=== PATIENT | female | born 1940 | race Caucasian/White ===

== ENCOUNTER 2021-04-23 15:20 | Emergency (ER) | payer MEDICARE, SELFPAY ==
--- NOTE | ~2021-04-23 | XR_ITS ---
EXAMINATION: XR forearm LT 2V INDICATION: Left wrist and forearm pain, initial encounter TECHNIQUE: Two views of the left forearm are obtained. COMPARISON: None available FINDINGS: There is an acute, traumatic, closed, transverse, impacted fracture of the distal radius. B one alignment at the wrist and elbow appears normal. No additional acute osseous abnormality is ident ified. Soft tissue swelling surrounds the fracture. 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 IMPRESSION: 1. Acute impacted fracture of the distal radius. Reviewed, dictated and finalized at location F. SAFETY COORDINATOR
--- NOTE | 2021-04-23 15:29 | ED.UPPEXIN ---
HPI - Extremity Injury (Upper) General Chief Complaint: Extremity Injury, Upper Stated Complaint: lt arm inj Time Seen by Provider: 04/23/21 15:30 Source: patient and RN notes reviewed History of Present Illness HPI narrative: Patient is a 89-year-old female who presents the urgent care with her friend with complaints of a left arm injury. Patient states that she was playing pickle ball at [employer] this afternoon and fell backwards onto her left arm. Patient denies hitting her head or any loss of consciousness. Patient is not done anything [id number] for her pain. No other acute complaints or injuries. No acute distress noted. Patient aware of the plan of care. Some parts of this dictation were generated by voice recognition software and may contain typographical and/or grammatical inaccuracies. Related Data Home Medications Medication Instructions Recorded Confirmed amlodipine 5 mg PO DAILY 04/23/21 04/23/21 benazepril 40 mg PO DAILY 04/23/21 04/23/21 levothyroxine 75 mcg PO DAILY 04/23/21 04/23/21 simvastatin 20 mg PO DAILY 04/23/21 04/23/21 Allergies Allergy/AdvReac Type Severity Reaction Status Date / Time No Known Allergies Allergy Verified 04/23/21 15:45 Review of Systems Review of Systems: CONSTITUTIONAL: Denies fever, chills, or sweats. EYES: Denies visual changes, redness, or discharge. ENT: Denies rhinorrhea, congestion, sore throat, or otalgia. CARDIOVASCULAR: Denies chest pain, palpitations, or edema. RESPIRATORY: Denies cough or dyspnea. GASTROINTESTINAL: Denies abdominal pain, nausea, vomiting, or diarrhea. GENITOURINARY: Denies dysuria or hematuria. SKIN: Denies rash or itching. MUSCULOSKELETAL: Reports of left arm injury due to fall with pain NEUROLOGIC: Denies headache, numbness, or weakness. All other systems reviewed are negative, except as documented in HPI. PMFSH Comments At the time of my signature, I reviewed and agree with the nursing past medical, surgical, social, and family history. There is no relevant family history pertinent to the patient complaint. Exam Narrative: GENERAL: This is a well-nourished, well-developed patient, in no apparent distress. HEAD: normocephalic, atraumatic. EYES: PERRL. Sclera clear/white. Vision is grossly intact. EARS: External ears normal NOSE: External nose normal with no obvious nasal discharge, nares without redness, no rhinorrhea. THROAT: Mucous membranes moist NECK: Neck supple CARDIOVASCULAR: Regular rate and rhythm RESPIRATORY: Clear to auscultation. Breath sounds equal bilaterally. No wheezes, rales, or rhonchi. SKIN: warm, intact with no suspicious lesions or rash, good texture and turgor. NEURO: awake, alert, and oriented to person, place and time. There were no obvious focal neurologic abnormalities. EXTREMITIES: No obvious deformity noted to the left upper extremity. Positive strong left radial pulse with capillary refill less than 2 seconds. Range of motion limited due to pain. Course Course Level of Care: Express Care Visit Vital Signs Vital signs: Vital Signs Temperature 98.5 F 04/23/21 15:34 Pulse Rate 100 04/23/21 15:34 Respiratory Rate 18 04/23/21 15:34 Blood Pressure 155/88 H 04/23/21 15:34 Pulse Oximetry 99 04/23/21 15:34 Temperature 98.5 F 04/23/21 15:34 Pulse Rate 100 04/23/21 15:34 Respiratory Rate 18 04/23/21 15:34 Blood Pressure 155/88 H 04/23/21 15:34 Pulse Oximetry 99 04/23/21 15:34 Reviewed-patient is informed that they may have pre-hypertension or hypertension based on a blood pressure reading in the department. I recommend the patient call the primary care provider listed on their discharge instructions or a physician of their choice this week to arrange follow-up for further evaluation of possible pre-hypertension or hypertension. Procedures Orthopedic Splinting/Casting Injury #1: Side: left Upper Extremity Injury Location: wrist Upper Extremity Immobilizer: s
[2021-04-23 15:34] VITALS: BP 155/88; PULSE 100; RESP 18; TEMP 36.9; O2SAT 99
== END 2021-04-23 16:25 | disposition home or self-care (01) ==
PROVIDERS: Emergency Provider Nurse Practitioner Family; PCP Internal Medicine
DX: S52.502A Unspecified fracture of the lower end of left radius, initial encounter for closed fracture (principal); W19.XXXA Unspecified fall, initial encounter; Y93.89 Activity, other specified; E78.00 Pure hypercholesterolemia, unspecified; I10 Essential (primary) hypertension; E89.0 Postprocedural hypothyroidism
CPT/HCPCS: 29125; 73090; 99214; A4565; G0463